=== PATIENT | female | born 1995 | race Caucasian/White ===

== ENCOUNTER 2017-01-16 20:50 | Inpatient (IN) | payer OTHER ==
[2017-01-16] VITALS (28 sets, daily range): BP systolic 107; BP diastolic 52; PULSE 103–149; RESP 18
[~2017-01-16 20:50] MED LIST: SULF1TAB47 PO
[2017-01-16] MEDS: LACTATED RINGER'S 1000 ML INJ 1,000 ML IV SCH ×2 (21:28→22:50)
[2017-01-16] MEDS ORDERED: ACETAMINOPHEN 325 MG TAB PO ONE (21:30)
[2017-01-16] MEDS ORDERED: cefTRIAXone INJ 1,000 MG in SODIUM CHLORIDE 0.9% INJ 100 ML IV SCH (22:15)
[2017-01-16 22:27] LABS: AUTOMATED NEUTROPHIL # 12.4 TH/MM3 (1.8-7.7); BASOPHIL # 0.1 TH/MM3 (0-0.2); BASOPHIL % 0.5 % (0.0-2.0); HEMATOCRIT 31.9 % (35.0-46.0); HEMO FLAGS DIFF FINAL; LYMPH % 3.6 % (9.0-44.0); LYMPHOCYTE # 0.5 TH/MM3 (1.0-4.8); MEAN CELL VOLUME 89.1 FL (80.0-100.0); MEAN CORPUSCULAR HEMOGLOBIN 31.2 PG (27.0-34.0); NEUT % 89.9 % (16.0-70.0); PLATELET COUNT 180 TH/MM3 (150-450); RED BLOOD COUNT 3.58 MIL/MM3 (4.00-5.30); RED CELL DISTRIBUTION WIDTH 13.1 % (11.6-17.2); WHITE BLOOD COUNT 13.8 TH/MM3 (4.0-11.0)
[2017-01-16] MEDS ORDERED: cefTRIAXone INJ 2,000 MG in SODIUM CHLORIDE 0.9% INJ 100 ML IV ONE (22:30)
[2017-01-16 22:31] LABS: BACTERIA, URINE MOD /hpf; BLOOD, URINE SMALL (NEG); COMMENT (UR) CULTURE INDICATED; CULTURE IF INDICATED CULTURE INDICATED; GLUCOSE,URINE NEG (NEG); KETONE, URINE 80 mg/dL (NEG); SQUAMOUS EPITHELIAL CELL URINE 5 /hpf (0-5); URINE COLOR YELLOW (YELLW/STRAW)
[2017-01-16 22:32] LABS: NITRITE,URINE POS (NEG)
[2017-01-16 22:46] LABS: ALT (GPT) 13 U/L (10-53); ANION GAP 9 MEQ/L (5-15); AST (GOT) 10 U/L (15-37); BICARBONATE 26.5 MEQ/L (21.0-32.0); BLOOD UREA NITROGEN 8 MG/DL (7-18); CHLORIDE 100 MEQ/L (98-107); GLOMERULAR FILTRATION RATE 101 ML/MIN (>89); POTASSIUM 3.6 MEQ/L (3.5-5.1); SODIUM (NA) 135 MEQ/L (136-145)
[2017-01-16 22:48] LABS: ALKALINE PHOSPHATASE 110 U/L (45-117); TOTAL BILIRUBIN ADULT 0.9 MG/DL (0.2-1.0)
--- NOTE | 2017-01-16 22:57 | HHI.HP ---
History & Physical H&P HPI Chief Complaint Fever and back pain and body aches for the past 2 days. Date Seen: Jan 16, 2017 Time Seen: 21:30 Travel History International Travel<30 Days: No Contact w/Intl Traveler<30Days: No Known Affected Area: No History of Present Illness HPI Patient is a 21-year-old white female who is at 22 weeks and 6 days who arrives here to the OB ED as a patient from [facility]. Patient complains of 2 days of fevers off and on highest fever today was 103 accompanied by back pain headache nausea vomiting. Patient states that she had a urinary tract infection on Thursday but was not given antibiotics. She states that her provider was unable to write a prescription. Denies congestion vaginal bleeding and vaginal discharge. She does have good movement Para: 1 : 3 Miscarriage: 1 History Past Medical History Medical History: Denies Significant Hx Obstetric History Obstetric History Spontaneous vaginal delivery Past Surgical History Surgical History: No Previous Surgery Family History Family History: Negative Social History Alcohol Use: No Tobacco Use: No Substance Abuse: No Allergies-Medications (Allergen,Severity, Reaction): Coded Allergies: No Known Allergies (Unverified , 10/21/12) Home Meds Reported Medications Trimethoprim/Sulfamethoxazole (Bactrim Ds) Tab1 Tab PO BID 10/21/12 Review of Systems General / Constitutional: Fever, Chills Gastrointestinal: Nausea, Vomiting Genitourinary: Urgency, Frequency, Dysuria Physical Exam Temperature is 100.3 blood pressure is 118/82 Vital Signs Date Time Temp Pulse Resp B/P Pulse Ox O2 Delivery O2 Flow Rate FiO2 01/16/17 21:35 114 01/16/17 21:30 113 Narrative GENERAL: Well-nourished, well-developed patient. SKIN: Warm and dry. HEAD: Normocephalic and atraumatic. EYES: No scleral icterus. No injection or drainage. ENT: No nasal drainage noted. Mucous membranes pink. Airway patent. NECK: Supple, trachea midline. No JVD. CARDIOVASCULAR: Regular rate and rhythm without murmurs, gallops, or rubs. RESPIRATORY: Breath sounds equal bilaterally. No accessory muscle use. BREASTS: Bilateral exam showed no masses , no retractions, no nipple discharge. ABDOMEN/GI: Abdomen soft, non-tender, bowel sounds present, no rebound, no guarding Gravid to [-22] weeks size Fundal Height: - GENITOURINARY: External Genitalia: intact and normal in appearance BUS glands: [-] Cervix: [-] Dilatation: [-] Effacement: [-] Station: [-] Presentation: [-] Membranes: [intact or ruptured] Uterine Contractions: [-None] FHT's: Category: [-] Baseline: [142-] Reactive: Moderate Variability: - Decels: [-] EXTREMITIES: No cyanosis or edema. BACK: Nontender without obvious deformity. Right CVA tenderness NEUROLOGICAL: Awake and alert. Motor and sensory grossly within normal limits. Five out of 5 muscle strength in all muscle groups. Normal speech. Data Data Orders Vital Signs (Adult) .ON ADMISSION (01/16/17 21:28) ^ Labor Status (01/16/17 21:28) Urinalysis - C+S If Indicated (01/16/17 21:28) Diet Regular Basic (01/17/17 Breakfast) Comprehensive Metabolic Panel (01/16/17 21:28) Lactated Ringer's 1000 Ml Inj (Lr 1000 M (01/16/17 21:28) Ceftriaxone Inj (Rocephin Inj) (01/16/17 22:30) Acetaminophen (Tylenol) (01/16/17 21:30) Complete Blood Count With Diff (01/16/17 21:28) Labs Laboratory Tests Test 01/16/17 21:10 White Blood Count 13.8 TH/MM3 Red Blood Count 3.58 MIL/MM3 Hemoglobin 11.2 GM/DL Hematocrit 31.9 % Mean Corpuscular Volume 89.1 FL Mean Corpuscular Hemoglobin 31.2 PG Mean Corpuscular Hemoglobin 35.0 % Concent Red Cell Distribution Width 13.1 % Platelet Count 180 TH/MM3 Mean Platelet Volume 8.1 FL Neutrophils (%) (Auto) 89.9 % Lymphocytes (%) (Auto) 3.6 % Monocytes (%) (Auto) 6.0 % Eosinophils (%) (Auto) 0.0 % Basophils (%) (Auto) 0.5 % Neutrophils # (Auto) 12.4 TH/MM3 Lymphocytes # (Auto) 0.5 TH/MM3 Monocytes # (Auto) 0.8 TH/MM3 Eosinophils # (Auto) 0.0 TH/MM3 Basophils # (Auto) 0.1 TH/MM3 CBC Comment DIFF FINAL Differential Comment Urine Color YELLOW Urine Turbidity CLOUDY Urine pH 6.0 Urine Specific [place] 1.018 Urine Protein 100 mg/dL Urine Glucose (UA) NEG mg/dL Urine Ketones 80 mg/dL Urine Occult Blood SMALL Urine Nitrite POS Urine Bilirubin NEG Urine Urobilinogen 2.0 MG/DL Urine Leukocyte Esterase LARGE Urine RBC 8 /hpf Urine WBC /hpf Urine WBC Clumps MANY Urine Squamous Epithelial 5 /hpf Cells Urine Bacteria MOD /hpf Microscopic Urinalysis Comment CULTURE INDICATED Sodium Level 135 MEQ/L Potassium Level 3.6 MEQ/L Chloride Level 100 MEQ/L Carbon Dioxide Level 26.5 MEQ/L Anion Gap 9 MEQ/L Blood Urea Nitrogen 8 MG/DL Creatinine 0.72 MG/DL Estimat Glomerular Filtration 101 ML/MIN Rate Random Glucose 108 MG/DL Calcium Level 9.0 MG/DL Aspartate Amino Transf 10 U/L (AST/SGOT) Alanine Aminotransferase 13 U/L (ALT/SGPT) Albumin 3.2 GM/DL [facility] Medical Record Reviewed: No Plan 22 week 6 day with pyelonephritis necessitating admission for IV antibiotics and fluids and antiemetics. Repeat CBC in the morning Ultrasound tomorrow morning Rocephin 1 g every 24 Diagnosis Diagnosis: Primary Impression: Pyelonephritis affecting in second trimester Additional Impression: 22 weeks gestation of Radha Pollack MD Jan 16, 2017 22:57
[2017-01-16] MEDS ORDERED: ONDANSETRON HCL 4 MG/2 ML VIAL IV PRN (23:00)
[2017-01-16] MEDS: cefTRIAXone INJ 1,000 MG in SODIUM CHLORIDE 0.9% INJ 100 ML IV SCH (23:00)
[2017-01-17] VITALS: RESP 18; TEMP 98.6
[2017-01-17] MEDS: ACETAMINOPHEN 325 MG TAB PO PRN ×5 (04:30→23:18)
[2017-01-17 05:31] LABS: AUTOMATED NEUTROPHIL # 11.4 TH/MM3 (1.8-7.7); BASOPHIL % 0.1 % (0.0-2.0); EOSINOPHIL % 0.1 % (0.0-4.0); HEMATOCRIT 28.4 % (35.0-46.0); HEMO FLAGS DIFF FINAL; LYMPHOCYTE # 0.8 TH/MM3 (1.0-4.8); MEAN CELL VOLUME 88.9 FL (80.0-100.0); MEAN CORPUSCULAR HGB CONC 34.9 % (32.0-36.0); MONO % 9.1 % (0.0-8.0); NEUT % 84.7 % (16.0-70.0); PLATELET COUNT 170 TH/MM3 (150-450); RED BLOOD COUNT 3.19 MIL/MM3 (4.00-5.30); RED CELL DISTRIBUTION WIDTH 13.6 % (11.6-17.2); WHITE BLOOD COUNT 13.5 TH/MM3 (4.0-11.0)
[2017-01-17] MEDS: LACTATED RINGER'S 1000 ML INJ 1,000 ML IV SCH ×3 (05:46→19:09)
[2017-01-17 07:25] VITALS: BP 110/47; PULSE 102
[2017-01-17 07:37] VITALS: TEMP 98.8
--- NOTE | 2017-01-17 08:41 | PD.OB.ANTE ---
Subjective Interval History 21-year-old, at 23 weeks gestation, found to have pyelonephritis, being treated with Rocephin, and lactated ringer at 125 ml/hr. Overnight, the patient felt well. She did report 1 episode of fever/chills. She is still having persistent right-sided lower back pain. The pain is less than yesterday. She denies any loss of fluid, vaginal bleeding, or decreased movement. Antepartum ROS: Reports: movement normal, Denies: New complaints, Loss of fluid, Vaginal bleeding, Contractions ( Carlos Deng MD R2) Objective Vital Signs Vital Signs Date Time Temp Pulse Resp B/P Pulse Ox O2 Delivery O2 Flow Rate FiO2 01/17/17 07:37 98.8 01/17/17 07:25 102 110/47 01/17/17 00:00 98.6 18 01/17/17 00:00 98.6 18 01/16/17 23:55 103 107/52 01/16/17 23:40 108 01/16/17 23:35 106 01/16/17 23:30 111 01/16/17 23:25 113 01/16/17 23:20 118 01/16/17 23:15 114 01/16/17 23:10 116 01/16/17 23:05 118 01/16/17 23:00 116 01/16/17 22:55 121 01/16/17 22:50 123 01/16/17 22:45 123 01/16/17 22:45 18 01/16/17 22:40 122 01/16/17 22:35 119 01/16/17 22:30 127 01/16/17 22:25 130 01/16/17 22:20 149 01/16/17 22:15 110 01/16/17 22:15 18 01/16/17 22:10 107 01/16/17 22:05 111 01/16/17 22:00 104 01/16/17 21:55 104 01/16/17 21:50 111 01/16/17 21:45 111 18 01/16/17 21:40 114 01/16/17 21:35 114 01/16/17 21:30 113 Lab & Micro Results Test 01/16/17 01/17/17 21:10 04:40 White Blood Count 13.8 TH/MM3 13.5 TH/MM3 Red Blood Count 3.58 MIL/MM3 3.19 MIL/MM3 Hemoglobin 11.2 GM/DL 9.9 GM/DL Hematocrit 31.9 % 28.4 % Mean Corpuscular Volume 89.1 FL 88.9 FL Mean Corpuscular Hemoglobin 31.2 PG 31.0 PG Mean Corpuscular Hemoglobin 35.0 % 34.9 % Concent Red Cell Distribution Width 13.1 % 13.6 % Platelet Count 180 TH/MM3 170 TH/MM3 Mean Platelet Volume 8.1 FL 8.1 FL Neutrophils (%) (Auto) 89.9 % 84.7 % Lymphocytes (%) (Auto) 3.6 % 6.0 % Monocytes (%) (Auto) 6.0 % 9.1 % Eosinophils (%) (Auto) 0.0 % 0.1 % Basophils (%) (Auto) 0.5 % 0.1 % Neutrophils # (Auto) 12.4 TH/MM3 11.4 TH/MM3 Lymphocytes # (Auto) 0.5 TH/MM3 0.8 TH/MM3 Monocytes # (Auto) 0.8 TH/MM3 1.2 TH/MM3 Eosinophils # (Auto) 0.0 TH/MM3 0.0 TH/MM3 Basophils # (Auto) 0.1 TH/MM3 0.0 TH/MM3 CBC Comment DIFF FINAL DIFF FINAL Differential Comment Urine Color YELLOW Urine Turbidity CLOUDY Urine pH 6.0 Urine Specific [employer] 1.018 Urine Protein 100 mg/dL Urine Glucose (UA) NEG mg/dL Urine Ketones 80 mg/dL Urine Occult Blood SMALL Urine Nitrite POS Urine Bilirubin NEG Urine Urobilinogen 2.0 MG/DL Urine Leukocyte Esterase LARGE Urine RBC 8 /hpf Urine WBC /hpf Urine WBC Clumps MANY Urine Squamous Epithelial 5 /hpf Cells Urine Bacteria MOD /hpf Microscopic Urinalysis Comment CULTURE INDICATED Sodium Level 135 MEQ/L Potassium Level 3.6 MEQ/L Chloride Level 100 MEQ/L Carbon Dioxide Level 26.5 MEQ/L Anion Gap 9 MEQ/L Blood Urea Nitrogen 8 MG/DL Creatinine 0.72 MG/DL Estimat Glomerular Filtration 101 ML/MIN Rate Random Glucose 108 MG/DL Calcium Level 9.0 MG/DL Total Bilirubin 0.9 MG/DL Aspartate Amino Transf 10 U/L (AST/SGOT) Alanine Aminotransferase 13 U/L (ALT/SGPT) Alkaline Phosphatase 110 U/L Total Protein 7.3 GM/DL Albumin 3.2 GM/DL Date/Time Procedure Status Source Growth 01/16/17 21:10 Urine Culture Received Urine Clean Catch Pending Physical Exam GENERAL: Well-nourished, well-developed patient. CARDIOVASCULAR: Regular rate and rhythm without murmurs, gallops, or rubs. RESPIRATORY: Breath sounds equal bilaterally. No accessory muscle use. ABDOMEN/GI: Abdomen soft, non-tender. GENITOURINARY: Right sided CVA tenderness. External Genitalia: intact and normal in appearance FHT's: on admission Category: 1 Baseline: 150 EXTREMITIES: No cyanosis or edema, non-tender, without signs of DVT. (Carlos Deng MD R2) Assessment and Plan Problem List: (1) Pyelonephritis affecting in second trimester Status: Acute Assessment & Plan: 21-year-old, , at 23.0 weeks gestation. Urine cultures are pending. The patient has been afebrile since 00:00 on 01/17/17. Her leukocytosis, at 13.8 thousand, has remained stable. WBCs 13.5 thousand. Hgb 11.2 --> 9.9. Her back pain is getting better. Continue with Rocephin 1 g every 24 hours IV. heart tracings every 4 hours. IV fluids, 125 LR. We'll advance diet today. Discussed with Dr. Pollack. (2) 22 weeks gestation of Status: Acute Assessment & Plan: FHT q 4 hours. Supportive therapy. (Carlos Deng MD R2) Collaborating MD Comments Patient admitted with pyelonephritis in . Symptoms have improved with fluids and IV antibiotics. Sonogram ordered for today Continue hospitalization and antibiotics (Radha Pollack MD) Carlos Deng MD R2 Jan 17, 2017 08:41 Radha Pollack MD Jan 17, 2017 09:15
[2017-01-17] MEDS ORDERED: GENTAMICIN INJ 80 MG in SODIUM CHLORIDE 0.9% INJ 100 ML IV SCH (10:00)
[2017-01-17] MEDS ORDERED: GENTAMICIN INJ 100 MG in SODIUM CHLORIDE 0.9% INJ 100 ML IV ONE (11:00)
[2017-01-17] MEDS: GENTAMICIN/SOD CHL 80 MG/100 ML IV SCH (18:16)
[2017-01-17] MEDS: SODIUM CHLORIDE 0.9% FLUSH 5 ML FLUSH IVF SCH (19:10)
[2017-01-17] MEDS: cefTRIAXone INJ 1,000 MG in SODIUM CHLORIDE 0.9% INJ 100 ML IV SCH (23:17)
[2017-01-17] MEDS: SODIUM CHLORIDE 0.9% FLUSH 5 ML FLUSH IVF PRN (23:17)
[2017-01-18] MEDS: LACTATED RINGER'S 1000 ML INJ 1,000 ML IV SCH ×3 (02:58→17:12)
[2017-01-18] MEDS: GENTAMICIN/SOD CHL 80 MG/100 ML IV SCH ×3 (02:58→19:43)
--- NOTE | 2017-01-18 08:08 | PD.OB.ANTE ---
Subjective Diagnosis: (1) Pyelonephritis affecting in second trimester (2) 22 weeks gestation of Interval History This patient is 23 week intrauterine with pyelonephritis, she is now on day 2 of antibiotics Rocephin and gentamicin, and she is improving with less CVA tenderness and headache but still present, she is afebrile greater than 24 hours. Urine culture preliminary results gram-negative rods positive with actual identification and sensitivities to follow ultrasound was done last night shows 23 week 1 day fetus weighed 604 g posterior placenta and no abnormalities seen. Plan is to continue IV antibiotics another 24 hours and then the very likely be able to discharge the patient on Macrodantin suppression for the remainder Objective Vital Signs Vital Signs Date Time Temp Pulse Resp B/P Pulse Ox O2 Delivery O2 Flow Rate FiO2 01/17/17 20:00 18 Lab & Micro Results Date/Time Procedure Status Source Growth 01/16/17 21:10 Urine Culture - Preliminary Resulted Urine Clean Catch Gram Negative Leonidas Physical Exam GENERAL: Well-nourished, well-developed patient. CARDIOVASCULAR: Regular rate and rhythm without murmurs, gallops, or rubs. RESPIRATORY: Breath sounds equal bilaterally. No accessory muscle use. ABDOMEN/GI: Abdomen soft, non-tender. Fundus: [-] GENITOURINARY: External Genitalia: intact and normal in appearance Cervix: [-] Dilatation: [-] Effacement: [-] Station: [-] Presentation: [-] Membranes: [-] Uterine Contractions: [-] FHT's: Category: [-] Baseline: [-] Reactive: [-] Variability: [-] Decels: [-] EXTREMITIES: No cyanosis or edema, non-tender, without signs of DVT. Assessment and Plan Problem List: (1) Pyelonephritis affecting in second trimester Status: Acute Assessment & Plan: 21-year-old, , at 23.0 weeks gestation. Urine cultures are pending. The patient has been afebrile since 00:00 on 01/17/17. Her leukocytosis, at 13.8 thousand, has remained stable. WBCs 13.5 thousand. Hgb 11.2 --> 9.9. Her back pain is getting better. Continue with Rocephin 1 g every 24 hours IV. heart tracings every 4 hours. IV fluids, 125 LR. We'll advance diet today. Discussed with Dr. Pollack. (2) 22 weeks gestation of Status: Acute Assessment & Plan: FHT q 4 hours. Supportive therapy. Joshua Massey II, MD Jan 18, 2017 08:08
[2017-01-18] MEDS: ACETAMINOPHEN 325 MG TAB PO PRN ×3 (08:13→23:06)
[2017-01-18] MEDS: SODIUM CHLORIDE 0.9% FLUSH 5 ML FLUSH IVF SCH ×2 (08:26→21:00)
[2017-01-18] MEDS: SODIUM CHLORIDE 0.9% FLUSH 5 ML FLUSH IVF PRN (12:41)
[2017-01-18 19:00] VITALS: RESP 18
[2017-01-18] MEDS: cefTRIAXone INJ 1,000 MG in SODIUM CHLORIDE 0.9% INJ 100 ML IV SCH (23:02)
[2017-01-19] MEDS: GENTAMICIN/SOD CHL 80 MG/100 ML IV SCH (02:49)
[2017-01-19] MEDS: LACTATED RINGER'S 1000 ML INJ 1,000 ML IV SCH (04:00)
[2017-01-19] MEDS ORDERED: NITROFURANTOIN MONOHYD MACROCR 100 MG CAP PO SCH (09:00)
--- NOTE | 2017-01-19 09:01 | PD.OB.ANTE ---
Subjective Interval History 21 year old at 23 2/7 weks gestation here for pyelonephritis. She completed a 3 day course of IV Rocephin and gentamicin, and is switching to Macrobid today (e.coli susceptible to Macrobid). This morning she reports she feels a lot better. She is not having dysuria. CVA tenderness has resolved. She has been afebrile. She has no nausea or vomiting overnight and is tolerating her diet. She reports feeling good. She has good movements and no contractions or loss of fluids. (Joao Gracia MD R2) Antepartum ROS: Denies: New complaints (No UC, ambulating well, regular diet. +FM) (Estefanía Fuller MD) Objective Vital Signs Vital Signs Date Time Temp Pulse Resp B/P Pulse Ox O2 Delivery O2 Flow Rate FiO2 01/18/17 19:00 18 Lab & Micro Results Date/Time Procedure Status Source Growth 01/16/17 21:10 Urine Culture - Final Complete Urine Clean Catch Escherichia Coli Physical Exam GENERAL: No distress CARDIOVASCULAR: Regular rate and rhythm without murmurs, gallops, or rubs. RESPIRATORY: Breath sounds equal bilaterally. No accessory muscle use. ABDOMEN/GI: Abdomen soft, non-tender. Fundus: 23 weeks GENITOURINARY: No contractions No CVA tenderness FHT's: Category:1 Baseline: 130's Reactive: yes Variability: moderate Decels: none EXTREMITIES: No cyanosis or edema, non-tender, without signs of DVT. (Joao Gracia MD R2) Physical Exam Minimal CVA tenderness (Estefanía Fuller MD) Assessment and Plan Problem List: (1) Pyelonephritis affecting in second trimester Status: Acute Assessment & Plan: 21-year-old, , at 23/2 weeks gestation here for pyelonephritis. Afebrile, urine culture with e.col that is deluna-sensitive. CVA tenderness, nausea, vomiting, and dysuria resolved. Received 3 days of IV Rocephin and Gentamicin, now switched to oral Macrobid. heart tracings reassuring. No contractions, good movement. - Continue Macrobid for two weeks. - Switch to PO fluids, encourage good hydration. - Follow up with OB closely (2) 22 weeks gestation of Status: Acute Assessment & Plan: - FHT q 4 hours. - Supportive therapy. (Joao Gracia MD R2) Assessment and Plan 23 weeks Pyelonephritis Significantly improved on IV abx Afebrile, VSS Oral Macrobid RX 14 days Discussed suppression this F/u with [facility] Seen and examined with Dr. Gracia (Estefanía Fuller MD) Joao Gracia MD R2 Jan 19, 2017 09:01 Estefanía Fuller MD Jan 19, 2017 09:28
[2017-01-19] MEDS ORDERED: MACR100C2 PO (09:05)
--- NOTE | 2017-01-19 09:05 | HHI.DCPOC ---
Discharge Care Plan Diagnosis: (1) Pyelonephritis affecting in second trimester Goals to Promote Your Health * To prevent worsening of your condition and complications * To maintain your health at the optimal level Directions to Meet Your Goals Take your medications as prescribed Follow your dietary instruction Follow activity as directed Keep your appointments as scheduled Take your immunizations and boosters as scheduled If your symptoms worsen call your PCP, if no PCP go to Urgent Care Center or Emergency Room Smoking is Dangerous to Your Health. Avoid second hand smoke Call the 24-hour hour crisis hotline for domestic abuse at Joao Gracia MD R2 Jan 19, 2017 09:05 Estefanía Fuller MD Jan 19, 2017 09:28
[2017-01-19] MEDS ORDERED: NITR50CA27 PO (10:10)
== END 2017-01-19 09:53 | disposition home or self-care (01) | DRG 781 ==
LOC: HOBED 20:50 → H2EA 23:14
PROVIDERS: ADMIT Obstetrics & Gynecology Obstetrics; ATTEND Obstetrics & Gynecology Obstetrics
DX: O23.02 Infections of kidney in pregnancy, second trimester (principal); B96.20 Unspecified Escherichia coli [E. coli] as the cause of diseases classified elsewhere; Z3A.22 22 weeks gestation of pregnancy
CPT/HCPCS: 76816; 80053; 81001; 85025; 87077; 87086; 87186; 96361; 96365; J0696; J1580; J2405; J7120